=== PATIENT | female | born 2000 ===

== ENCOUNTER 2021-10-07 09:26 | Emergency (ER) | payer BC ==
[2021-10-07] MEDS ORDERED: HYDROmorphone 0.5 MG/0.5 ML Syringe IVPUSH ONE (10:59)
== END 2021-10-07 12:45 | disposition home or self-care (01) ==
LOC: JD.ED 09:26
DX: N13.2 Hydronephrosis with renal and ureteral calculous obstruction (principal)
CPT/HCPCS: 36415; 74176; 81001; 84703; 85025; 96374; 99284; J1170